=== PATIENT | female | born 1985 | race Caucasian/White ===

== ENCOUNTER → 2018-06-12 | Outpatient (CLI) | END | disposition home or self-care (01) ==

== ENCOUNTER 2018-12-18 10:53 | Inpatient (IN) | payer MEDICAID ==
[~2018-12-18] VITALS: Ht 172.7 cm; Wt 109.7 kg
[~2018-12-18 10:53] MED LIST: PREN-47 PO
[2018-12-18] MEDS ORDERED: LACTATED RINGER'S 1,000 ML IV ONE (11:00)
[2018-12-18] MEDS ORDERED: AL HYDROX/MG HYDROX/SIMETH 30 ML CUP PO PRN (11:00)
[2018-12-18] MEDS ORDERED: ACETAMINOPHEN 325 MG TAB PO PRN (11:00)
--- NOTE | 2018-12-18 11:17 | TRIAGE ---
OB Triage Datetime Report Generated by CPN: 12/18/2018 11:16 Datetime: 12/18/2018 11:02 Maternal Assessment Level of Consciousness: Fully Conscious DTR's/Clonus: DTRs 2+; No Clonus Headache: Denies Blurred Vision: No Respiratory Effort: Unlabored; Regular Rhythm; Equal Expansion Breath Sounds, Left: Clear and Equal Breath Sounds, Right: Clear and Equal Nausea/Vomiting: Denies RUQ Epigastric Pain: Denies Facial Edema: None Fall Risk Assessment History of Falling: (0) No Secondary Diagnosis: (0) No Ambulatory Aid: (0) Bedrest/Nurse Assist IV Therapy: (0) No Gait: (0) Normal/Bedrest/Immobile Mental Status: (0) Oriented to Own Ability Datetime: 12/15/2018 08:17 Time of Arrival: 12/18/2018 10:48 EGA: 36.2 Arrived By: Ambulatory Arrived From: Office Chief Complaint: YEN 4.3 from Perinatology Movement: Present Contractions: Denies/Absent Rupture of Membranes: Denies Vaginal Bleeding: Normal Show Vaginal Discharge: Denies Recent Sexual Intercouse: Denies Abdominal Trauma: Not Applicable Patient Complaints: None Time Provider Notified: 12/18/2018 11:02 Provider Notified: Dilip
[2018-12-18] MEDS: LACTATED RINGER'S 1,000 ML IV SCH ×2 (11:35→17:00)
[2018-12-18] MEDS: DEXAMETHASONE 4 MG/ML 5 ML INJ IM SCH ×2 (11:36→23:53)
[2018-12-18 11:37] VITALS: Ht 172.7 cm; Wt 109.7 kg
[2018-12-18 11:39] VITALS: BP 109/56; PULSE 81; RESP 20
[2018-12-18] MEDS: AMOXICILLIN/CLAV 500 MG TAB PO SCH ×2 (15:09→21:07)
--- NOTE | 2018-12-18 17:09 | HP ---
Date/Time of Note Date/Time of Note DATE: 12/18/18 TIME: 17:06 OB - History Hx of Present Free Text/Dictation 33-year-old female 2 para 1 at 36 weeks and 2 days gestation sent in from antepartum testing unit for oligohydramnios with amniotic fluid index of 4 cm Last Menstrual Period: Feb 08, 2009 Estimated Due Date: Jan 13, 2019 : 2 Para: 1 Care: Good Care Ultrasounds: Normal mid trimester US Obstetrical Complications: Other (LOW nisha-a) Medical Complications: None Past Family/Social History * Past Medical, Surgical, Family and Obstetric Histories reviewed from chart. Blood Type: O+ Rubella: immune RPR/VDRL: Negative GBS Status: Unknown HBsAG: Negative OB Admission Exam Vital Signs Vital Signs Vital Signs Date Temp Pulse Resp B/P (MAP) Pulse Ox O2 O2 Flow FiO2 Time Delivery Rate 12/18/18 98.5 81 20 109/56 Room Air 11:39 (73) Physical Exam HEENT: WNL Heart: Rhythm Normal Lungs: Clear, Equal Abdomen: WNL Extremities: Normal Reflexes: Normal Cervical Dilatation: None Effacement: 0% Station: -3 Membranes: Intact Heart Rate: 140's Accelerations: Accelerations Present Decelerations: No Decelerations Varibility: Marked Contractions on Admission: None OB Assessment/Plan Other Assessment: Oligohydramnios at 36 weeks and 2 days Other plan: Patient was admitted for IV hydration Steroids will be provide CLEMENTINA LUTZ MD Dec 18, 2018 17:09
[2018-12-19] MEDS: LACTATED RINGER'S 1,000 ML IV SCH ×3 (01:05→18:10)
[2018-12-19] MEDS: PRENATAL VITAMIN PO SCH (08:28)
[2018-12-19] MEDS: AMOXICILLIN/CLAV 500 MG TAB PO SCH ×3 (09:29→20:26)
[2018-12-19] MEDS: DEXAMETHASONE 4 MG/ML 5 ML INJ IM SCH ×2 (11:26→22:27)
--- NOTE | 2018-12-19 17:00 | PN ---
Date/Time of Note Date/Time of Note DATE: 12/19/18 TIME: 16:59 OB Subjective Subjective Subjective Patient has no major complaints OB Objective Objective Objective Vital signs are stable and general physical exam is unchanged Amniotic fluid index today was 5.7 which appears very low for gestational age OB Assessment/Plan Other Assessment: Decreased amniotic fluid at 36 weeks and 3 days Other plan: Await completion of steroid therapy and repeat YEN following day CLEMENTINA LUTZ MD Dec 19, 2018 17:00
[2018-12-20] MEDS: LACTATED RINGER'S 1,000 ML IV SCH ×3 (01:57→18:35)
[2018-12-20] MEDS: AMOXICILLIN/CLAV 500 MG TAB PO SCH ×3 (09:44→21:09)
[2018-12-20] MEDS: PRENATAL VITAMIN PO SCH (09:44)
--- NOTE | 2018-12-20 13:23 | PN ---
Date/Time of Note Date/Time of Note DATE: 12/20/18 TIME: 13:22 OB Subjective Subjective Subjective Patient does not have major complaints OB Objective Objective Objective Vital signs are stable General physical exam is unchanged heart tones are reactive YEN today is 5.4 OB Assessment/Plan Other Assessment: Decreased amniotic fluid and oligohydramnios at 36 weeks and 4 days Other plan: Perinatologist was contacted and recommended to continue observation until 37 weeks and induce at 37 weeks CLEMENTINA LUTZ MD Dec 20, 2018 13:23
[2018-12-21] MEDS: LACTATED RINGER'S 1,000 ML IV SCH ×3 (01:49→17:01)
[2018-12-21] MEDS: PRENATAL VITAMIN PO SCH (08:26)
[2018-12-21] MEDS: AMOXICILLIN/CLAV 500 MG TAB PO SCH ×3 (09:15→21:32)
[2018-12-21] MEDS ORDERED: LIDOCAINE 1% (MPF) 30 ML INJ INJ PRN (09:30)
[2018-12-21] MEDS ORDERED: OXYTOCIN 30 UNITS/LR 500 ML IV PRN (09:30)
[2018-12-21] MEDS ORDERED: METHYLERGONOVINE 0.2 MG INJ IM PRN (09:30)
[2018-12-21] MEDS ORDERED: MISOPROSTOL 200 MCG TAB PR PRN (09:30)
[2018-12-21] MEDS ORDERED: CARBOPROST 250 MCG INJ IM PRN (09:30)
[2018-12-21] MEDS ORDERED: OXYTOCIN 30 UNITS/LR 500 ML IV SCH (09:30)
--- NOTE | 2018-12-21 14:21 | PN ---
Date/Time of Note Date/Time of Note DATE: 12/21/18 TIME: 14:21 OB Subjective Subjective Subjective Patient has no major complaint OB Objective Objective Objective Vital signs as well as general physical exam is unchanged and heart tones appeared reactive OB Assessment/Plan Other Assessment: 36 weeks and 5 days gestation with decreased amniotic fluid Other plan: Continue to observe until 37 weeks and induce labor at 37 CLEMENTINA LUTZ MD Dec 21, 2018 14:21
[2018-12-22] MEDS: LACTATED RINGER'S 1,000 ML IV SCH ×3 (00:05→17:17)
[2018-12-22] MEDS: PRENATAL VITAMIN PO SCH (09:36)
[2018-12-22] MEDS: AMOXICILLIN/CLAV 500 MG TAB PO SCH ×3 (09:36→21:00)
--- NOTE | 2018-12-22 14:29 | PN ---
Date/Time of Note Date/Time of Note DATE: 12/22/18 TIME: 14:28 OB Subjective Subjective Subjective Patient has no major complaints OB Objective Objective Objective Vital signs as well as general physical exam is unchanged heart tones are reactive OB Assessment/Plan Other Assessment: 36 weeks and 6 days gestation Decreased amniotic fluid Other plan: We will start induction following day CLEMENTINA LUTZ MD Dec 22, 2018 14:29
[2018-12-23] MEDS: LACTATED RINGER'S 1,000 ML IV SCH ×4 (01:19→17:30)
[2018-12-23] MEDS: PRENATAL VITAMIN PO SCH (09:00)
[2018-12-23] MEDS ORDERED: AMPICILLIN 2 GM/NS (PMX) 100 ML IVPB ONE (09:30)
[2018-12-23] MEDS ORDERED: OXYTOCIN 30 UNITS/LR 500 ML IV SCH (09:30)
[2018-12-23] MEDS: OXYTOCIN 30 UNITS/LR 500 ML IV SCH ×2 (10:19→11:22)
[2018-12-23] MEDS ORDERED: MINERAL OIL LIGHT 10 ML VIAL TOP ONE ×2 (11:30→22:00)
[2018-12-23] MEDS: AMPICILLIN 1 GM/NS (PMX) 50 ML IVPB SCH ×3 (14:06→21:00)
--- NOTE | 2018-12-23 16:28 | PREAC ---
Date/Time of Note Date/Time of Note DATE: 12/23/18 TIME: 16:27 Anesthesia Eval and Record Evaluation Time Pre-Procedure Interview DATE: 12/23/18 TIME: 16:27 Age 33 Sex female NPO: 8 hrs Preoperative diagnosis LABOR PAIN Planned procedure LABOR EPIDURAL Past Medical History Past Medical History: Includes : : (2), Para: (1), Gestational age: (36 5/7), Other (LOW YEN) Surgery & Anesthesia Issues No known issue Meds Anticoagulation: No Beta Felix within 24 hr: No Reason Beta Felix not given: Pt. not on B-Felix Reported Medications [id number] Acid (Prenata Chewable) 1 Each Tab.chew, 1 TAB PO DA HERON, TAB.CHEW 10/08/15 Current Medications Lactated Ringer's 1,000 ml @ 125 mls/hr Q8H IV Last administered on 12/23/18at 16:00; Admin Dose 125 MLS/HR; Start 12/18/18 at 10:59 Prenat Multivit/ [place]/Iron/Folic Ac () 1 tab DAILY PO Last administered on 12/22/18at 09:36; Admin Dose 1 TAB; Start 12/19/18 at 09:00 Acetaminophen (Tylenol Tab) 650 mg Q4H PRN PO .PAIN OR TEMP; Start 12/18/18 at 11:00 Al Hydrox/Mg Hydrox/Simethicone (Mag-Al Plus) 30 ml Q6H PRN PO .GI UPSET; Start 12/18/18 at 11:00 Lidocaine (Xylocaine 1% (Mpf)) 30 ml ONCE PRN INJ .EPISIOTOMY; Start 12/21/18 at 09:30 Oxytocin/Lactated Ringer's 500 ml @ 500 mls/hr ONCE POST IV Last administered on 12/23/18at 10:19; Admin Dose 500 MLS/HR; Start 12/21/18 at 09:30 Oxytocin/Lactated Ringer's 500 ml @ 125 mls/hr POST IV ; Start 12/21/18 at 09:30 Oxytocin/Lactated Ringer's 500 ml @ 0 mls/hr ONCE PRN IV .VAGINAL BLEEDING; Start 12/21/18 at 09:30 Methylergonovine Maleate (Methergine) 0.2 mg ONCE PRN IM .VAGINAL BLEEDING; Start 12/21/18 at 09:30 Carboprost Tromethamine (Hemabate) 250 mcg ONCE PRN IM .VAGINAL BLEEDING; Start 12/21/18 at 09:30 Misoprostol (Cytotec) 1,000 mcg ONCE PRN TX .VAGINAL BLEEDING; Start 12/21/18 at 09:30 Oxytocin/Lactated Ringer's 500 ml @ 0 mls/hr Q0M IV Last administered on 12/23/18at 11:23; Admin Dose 1 MLS/HR; Start 12/23/18 at 09:30 Ampicillin 50 ml @ 100 mls/hr Q4 IVPB Last administered on 12/23/18at 14:06; Admin Dose 100 MLS/HR; Start 12/23/18 at 13:00 Meds reviewed: Yes Allergies Coded Allergies: No Known Drug Allergies (Unverified Allergy, Unknown, 10/08/15) Allergies Reviewed: Yes Labs/Studies Labs Reviewed: Reviewed by anesthesiologist Result Diagram: 12/21/18 1157 test: N/A Pre-procedure Exam Airway: Adequate mouth opening, Adequate thyromental dist Mallampati: Mallampati II Teeth: Normal Lung: Normal Heart: Normal ASA Physical Status ASA physical status: 2 Emergency: None Planned Anesthetic Neuraxial: Epidural Planned Pain Management Epidural Pre-operative Attestations Prior to commencing anesthesia and surgery, the patient was re-evaluated, there was verification of: *The patient's identity *The results of appropriate recent lab work and preoperative vital signs *The above evaluation not changing prior to induction *Anesthetic plan, risk benefits, alternative and complications discussed with patient/family; questions answered; patient/family understands, accepts and wishes to proceed. Israel Sim M.D. Dec 23, 2018 16:28
[2018-12-23] MEDS ORDERED: FENTAnyl 2MCG/ML-ROPIV 0.2% 100 ML ONE (16:29)
--- NOTE | 2018-12-23 17:27 | PAC ---
Date/Time of Note Date/Time of Note DATE: 12/23/18 TIME: 17:26 Post-Anesthesia Notes Post-Anesthesia Note Last documented vital signs HR; 77 RR;15 BP;125/59 TEMP;36.7 Activity: WNL Respiratory function: WNL Cardiovascular function: WNL Mental status: Baseline Pain reasonably controlled: Yes Hydration appropriate: Yes Nausea/Vomiting absent: Yes Israel Sim M.D. Dec 23, 2018 17:27
[2018-12-23] MEDS ORDERED: TRIMETHOBENZAMIDE 100 MG/ML VIAL IM PRN (17:30)
[2018-12-23] MEDS ORDERED: DIPHENHYDRAMINE 50 MG INJ IV PRN (17:30)
[2018-12-23] MEDS ORDERED: FENTAnyl 2MCG/ML-ROPIV 0.2% 100 ML BAG EPI SCH (17:30)
[2018-12-23] MEDS ORDERED: NALOXONE (0.4 MG/ML) INJ IV PRN (17:30)
[2018-12-23] MEDS ORDERED: ONDANSETRON 4 MG INJ IV PRN (17:30)
--- NOTE | 2018-12-23 18:42 | PN ---
Date/Time of Note Date/Time of Note DATE: 12/23/18 TIME: 18:41 OB Subjective Subjective Subjective Patient currently has epidural and does not feel contractions OB Objective Objective Objective Vital signs as well as general physical exam is unchanged IV antibiotics were started because of positive GBS Membranes were ruptured Pitocin augmentation of labor was started already Cervix is 80% in 2-3 cm open OB Assessment/Plan Other Assessment: Symmetrical IUGR at 37+ weeks Other plan: We will continue with Pitocin augmentation of labor CLEMENTINA LUTZ MD Dec 23, 2018 18:42
--- NOTE | 2018-12-23 23:22 | LDN ---
Date/Time of Note Date/Time of Note DATE: 12/23/18 TIME: 23:20 Delivery Summary Normal spontaneous vaginal delivery of a viable infant over intact perineum Weeks of Gestation 37 weeks Placenta Delivered: Spontaneously, Intact & Complete Meconium: none Episiotomy: No Perineal laceration: 1 Laceration repair: Previous hymenal third that hymen from its bed and on hymen was turned into the band was replaced placed into position and repaired First-degree perineal laceration was then repaired in layers using 2-0 chromic on a CT1 needle Anesthesia type: Epidural Estimated blood loss: 300 Sponge & Needle done & correct: Yes All needle counts correct: Yes Any foreign bodies felt in the: No Delivery Information Sex Infant Sex: female Apgars 1 Minute: 9 5 Minute: 9 Suctioning Nose & mouth suctioned at [place]: Yes Delee suction performed: No Umbilical Cord Umbilical cord with: 3 Vessels Cord presentations: nuchal cord Nuchal cord present X: 1 Cord Blood was obtained: Yes Mother & Baby Disposition Disposition Mom & Baby to Maternity; Good: Yes (Mother and baby were recovered in stable and fair condition) Mom transferred to: Other (Maternity) Baby to NICU: No CLEMENTINA LUTZ MD Dec 23, 2018 23:22
[2018-12-24] MEDS: AMPICILLIN 1 GM/NS (PMX) 50 ML IVPB SCH ×2 (01:00→05:00)
[2018-12-24] MEDS ORDERED: IBUPROFEN 600 MG TAB PO ONE (01:00)
[2018-12-24] MEDS ORDERED: SOD CHLORIDE 0.9% 100 ML ONE (03:10)
[2018-12-24] MEDS ORDERED: IOHEXOL 100 ML ONE (03:10)
[2018-12-24] MEDS ORDERED: IOHEXOL 350MG/ML 50 ML BTL ONE (03:10)
[2018-12-24] MEDS: LACTATED RINGER'S 1,000 ML IV SCH (05:21)
[2018-12-24] MEDS ORDERED: DIBUCAINE 1% 30 GM OINT TOP PRN (06:00)
[2018-12-24] MEDS ORDERED: CARBOPROST 250 MCG INJ IM PRN (06:00)
[2018-12-24] MEDS ORDERED: LANOLIN HPA 1 PKT TOP PRN (06:00)
[2018-12-24] MEDS ORDERED: OXYTOCIN 30 UNITS/LR 500 ML IV PRN (06:00)
[2018-12-24] MEDS ORDERED: MISOPROSTOL 200 MCG TAB PR PRN (06:00)
[2018-12-24] MEDS ORDERED: METHYLERGONOVINE 0.2 MG INJ IM PRN (06:00)
[2018-12-24] MEDS ORDERED: HYDROCODONE/APAP (5/325) TAB PO PRN ×2 (06:00)
[2018-12-24] MEDS ORDERED: ZOLPIDEM 5 MG TAB PO PRN (06:00)
[2018-12-24 06:15] VITALS: BP 118/57; PULSE 80; RESP 20
[2018-12-24] MEDS: IBUPROFEN 600 MG TAB PO SCH ×3 (07:20→17:29)
[2018-12-24] MEDS: CEPHALEXIN 500 MG CAP PO SCH ×3 (07:40→17:29)
[2018-12-24] MEDS: LACTATED RINGER'S 1,000 ML IV* SCH ×3 (07:40→21:40)
[2018-12-24] MEDS: WITCH HAZEL/GLYCERIN PAD PR PRN (08:53)
[2018-12-24] MEDS: BENZOCAINE 20% 56 ML SPRAY TOP PRN (08:53)
[2018-12-24 11:39] VITALS: BP 108/68; PULSE 67; RESP 18
[2018-12-24] MEDS: MAGNESIUM HYDROXIDE 30ML CUP PO SCH ×2 (11:50→20:42)
[2018-12-24] MEDS: SENNA/DOCUSATE NA (8.6MG/50MG) TAB PO SCH ×2 (11:50→20:42)
--- NOTE | 2018-12-24 13:20 | DS ---
Date/Time of Note Date/Time of Note home today or next DATE: 12/24/18 TIME: 13:18 Obstetrical Discharge Record Final Diagnosis Final Diagnosis: Term delivered Other Final Diagnosis S/P vaginal delivery Vaginal Delivery Obstetrical Delivery: Spontaneous, Laceration, Repaired Complications Other (oligohydramnios) Augmentation: Yes Induction: Yes Condition on Discharge Physical Assessment Last Vitals: see nurses notes Voiding: Yes Bowel Movement: Yes Breast: Soft, non-tender, Filling Fundus: Firm Abdomen and Incision: soft BS + Episiotomy: perineum is healing well and appears clean Calf Tenderness: No Patient Condition: Good CLEMENTINA LUTZ MD Dec 24, 2018 13:20
--- NOTE | 2018-12-24 13:22 | PD.PPDC ---
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 Provider Information Physician Information 33y/o female had vaginal delivery Diagnosis [id number] Final Diagnosis: Axsjf2s S/P vaginal delivery Condition [id number] Patient Condition: [id number] Good Diet [id number] Diet: [id number] Resume Regular Diet Activity/Restrictions [id number] Activity: [id number] Normal Activity May Shower [id number] Restrictions: [id number] Nothing in the Vagina [id number] Return to Work or School: [id number] Feb 12, 2019 Follow-up Follow-up with Physician: 2, 4, Week/Weeks (in clinic) Return to clinic for [id number] OB Instructions: [id number] Breast Tenderness Depression Comment: pelvic rest x 6 weeks CLEMENTINA LUTZ MD Dec 24, 2018 13:22
[2018-12-24] MEDS ORDERED: IBUP-1542 PO (13:23)
[2018-12-24 16:00] VITALS: BP 103/57; PULSE 65; RESP 18
[2018-12-24 20:30] VITALS: BP 104/51; PULSE 69; RESP 18
[2018-12-25] MEDS: IBUPROFEN 600 MG TAB PO SCH ×3 (00:20→12:19)
[2018-12-25] MEDS: CEPHALEXIN 500 MG CAP PO SCH ×3 (00:21→12:18)
[2018-12-25 03:45] VITALS: BP 114/59; PULSE 63; RESP 18
[2018-12-25] MEDS: LACTATED RINGER'S 1,000 ML IV* SCH (05:32)
[2018-12-25] MEDS: MAGNESIUM HYDROXIDE 30ML CUP PO SCH (08:21)
[2018-12-25] MEDS: SENNA/DOCUSATE NA (8.6MG/50MG) TAB PO SCH (08:21)
[2018-12-25 08:30] VITALS: BP 112/54; PULSE 60; RESP 17
[2018-12-25] MEDS ORDERED: DIPHTH/TET/ACEL PERTUSS (ADULT) 0.5 ML VIAL IM* ONE (09:00)
[2018-12-25] MEDS ORDERED: MEASLES,MUMPS,RUBELLA VACCINE INJ SC* ONE (09:00)
[2018-12-25] MEDS ORDERED: VARICELLA VACCINE LIVE/PF 1,350 UNIT/0.5 ML ML SC* ONE (09:00)
[2018-12-25] MEDS: BENZOCAINE 20% 56 ML SPRAY TOP PRN (12:23)
[2018-12-25] MEDS: WITCH HAZEL/GLYCERIN PAD PR PRN (12:23)
== END 2018-12-25 15:50 | disposition home or self-care (01) | DRG 807 ==
LOC: OBT 10:53 → L-D 10:54 → OBT 11:05 → L-D 11:05 → PP1 12-24 06:10
PROVIDERS: ADMIT Obstetrics & Gynecology; ATTEND Obstetrics & Gynecology
PROC: 10E0XZZ Delivery of Products of Conception, External Approach (ICD-10-PCS; principal; 2018-12-23)
PROC: 3E033VJ Introduction of Other Hormone into Peripheral Vein, Percutaneous Approach (ICD-10-PCS; 2018-12-23)
PROC: 0HQ9XZZ Repair Perineum Skin, External Approach (ICD-10-PCS; 2018-12-23)
DX: O41.03X0 Oligohydramnios, third trimester, not applicable or unspecified (principal); Z37.0 Single live birth; O36.5930 Maternal care for other known or suspected poor fetal growth, third trimester, not applicable or unspecified; Z3A.37 37 weeks gestation of pregnancy; O70.0 First degree perineal laceration during delivery
CPT/HCPCS: 36600; 62319; 71045; 71275; 76815; 76818; 82565; 82803; 84520; 85025; 85610; 85730; 86592; 86850; 86900; 86901; 87340; 90716; G0463; J0290; J1100; J2590; J3010; J7120; Q9967